=== PATIENT | female | born 1995 | race American Indian/Alaskan Native ===

== ENCOUNTER 2019-07-12 11:55 | Emergency (ER) | payer OTHER ==
[2019-07-12 13:08] VITALS: BP 108/68
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
== END 2019-07-12 13:53 | disposition home or self-care (01) ==
LOC: ED 11:55
DX: M62.838 Other muscle spasm (principal); Z79.899 Other long term (current) drug therapy; V49.59XA Passenger injured in collision with other motor vehicles in traffic accident, initial encounter; Y93.89 Activity, other specified; Y92.488 Other paved roadways as the place of occurrence of the external cause; Y99.8 Other external cause status
CPT/HCPCS: 99282

== ENCOUNTER 2021-06-10 17:47 | Emergency (ER) | payer MEDICAID ==
[2021-06-10 18:55] VITALS: BP 118/77
[2021-06-10] MEDS ORDERED: IBUPROFEN 800 MG TAB PO ONE (21:11)
[2021-06-10] MEDS ORDERED: diphenhydrAMINE 25 MG CAP PO ONE (21:11)
[2021-06-10] MEDS ORDERED: cephALEXin 500 MG CAP PO ONE (21:11)
--- NOTE | 2021-06-10 21:16 | Emergency Department Report ---
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 Patient states erythema itching mild drainage and pain. Symptoms are rated at 5/10, symptoms are relieved by nothing tried. Symptoms are exacerbated by scratching and palpation. There is no numbness, tingling, patient denies fevers or chills. Severity scale (0 -10): 6 - Related Data Previous Rx's Medication Instructions Recorded Last Taken Type Ibuprofen [Motrin 800 MG tab] 800 mg PO Q8HR PRN #30 tablet 06/10/21 Unknown Rx cephALEXin [Keflex] 500 mg PO Q8HR 7 Days #21 cap 06/10/21 Unknown Rx diphenhydrAMINE [Benadryl CAP] 25 mg PO Q8HR PRN #30 capsule 06/10/21 Unknown Rx Allergies Allergy/AdvReac Type Severity Reaction Status Date / Time No Known Allergies Allergy Verified 06/10/21 18:53 ED Review of Systems ROS: Stated complaint: SPIDER BITE Other details as noted in HPI Constitutional: denies: chills, fever Eyes: denies: eye pain, eye discharge, vision change ENT: denies: ear pain, throat pain Respiratory: denies: cough, shortness of breath, wheezing Cardiovascular: denies: chest pain, palpitations Endocrine: no symptoms reported Gastrointestinal: denies: abdominal pain, nausea, vomiting, diarrhea Genitourinary: denies: urgency, dysuria, discharge Musculoskeletal: denies: back pain, joint swelling, arthralgia Skin: other (right posterior lower leg erythema, swelling ) Neurological: denies: headache, weakness, paresthesias Psychiatric: denies: anxiety, depression ED Past Medical Hx - Past Medical History Previous Medical History?: No Additional medical history: Vaginal delivery x 1 - Surgical History Past Surgical History?: No - Social History Smoking Status: Never Smoker Substance Use Type: None - Medications Home Medications: Home Medications Medication Instructions Recorded Confirmed Last Taken Type Ibuprofen [Motrin 800 MG tab] 800 mg PO Q8HR PRN #30 tablet 06/10/21 Unknown Rx cephALEXin [Keflex] 500 mg PO Q8HR 7 Days #21 cap 06/10/21 Unknown Rx diphenhydrAMINE [Benadryl CAP] 25 mg PO Q8HR PRN #30 capsule 06/10/21 Unknown Rx ED Physical Exam - General Limitations: No Limitations General appearance: alert, in no apparent distress - Head Head exam: Present: atraumatic, normocephalic - Eye Eye exam: Present: normal appearance, EOMI Pupils: Present: normal accommodation - ENT ENT exam: Present: mucous membranes moist - Neck Neck exam: Present: normal inspection, full ROM. Absent: tenderness - Respiratory Respiratory exam: Present: normal lung sounds bilaterally. Absent: respiratory distress, wheezes, stridor - Cardiovascular Cardiovascular Exam: Present: regular rate, normal rhythm, normal heart sounds. Absent: systolic murmur, diastolic murmur, rubs, gallop - GI/Abdominal GI/Abdominal exam: Present: soft, normal bowel sounds. Absent: distended, tenderness - Rectal Rectal exam: Present: deferred - Extremities Exam Extremities exam: Present: normal inspection, full ROM - Expanded Lower Extremity Exam Right Lower Leg exam: Present: full ROM, tenderness, swelling, erythema (1x2 cm raised smooth, surrounding erythema, warm to touch, no fluctuance ). Absent: ecchymosis, crepidus, palpable cord, Gerri's sign Ankle exam: Present: full ROM. Absent: tenderness Foot/Toe exam: Present: full ROM. Absent: tenderness Neuro vascular tendon exam: Absent: pulse deficit, motor deficit Gait: Positive: observed and normal - Back Exam Back exam: Present: normal inspection, full ROM. Absent: tenderness - Neurological Exam Neurological exam: Present: alert, oriented X3, CN II-XII intact, normal gait - Psychiatric Psychiatric exam: Present: normal affect, normal mood - Skin Skin exam: Present: warm, dry, intact, normal color. Absent: rash ED Course Vital Signs 06/10/21 18:54 Temperature 98.4 F Pulse Rate 104 H Respiratory 18 Rate Blood Pressure 118/77 [Right] O2 Sat by Pulse 100 Oximetry ED Medical Decision Making - Medical Decision Making This is an infected spider bite with mild cellulitis, plan Keflex, NSAIDs as needed pain, Benadryl as needed itching. Wash area with soap and water daily as discussed. There is no open lesion no drainage at this time patient is amatory with steady gait with no acute distress. Patient will follow with primary care in 2 to 3 days. Critical care attestation.: If time is entered above; I have spent that time in minutes in the direct care of this critically ill patient, excluding procedure time. ED Disposition Clinical Impression: Infected insect bite Qualifiers: Encounter type: initial encounter Qualified Code(s): W57.XXXA - Bitten or stung by nonvenomous insect and other nonvenomous arthropods, initial encounter Lower extremity cellulitis Qualifiers: Laterality: right Qualified Code(s): L03.115 - Cellulitis of right lower limb Disposition: DC-01 TO HOME OR SELFCARE Is pt being admited?: No Does the pt Need Aspirin: No Condition: Stable Instructions: Insect Bite, Adult, [id number], Cellulitis, Adult Additional Instructions: Take medications as prescribed, wash with soap and water daily. Follow-up with primary care doctor in 2 to 3 days. Return to emergency department should symptoms worsen. Prescriptions: diphenhydrAMINE [Benadryl CAP] 25 mg PO Q8HR PRN #30 capsule PRN Reason: Itching cephALEXin [Keflex] 500 mg PO Q8HR 7 Days #21 cap Ibuprofen [Motrin 800 MG tab] 800 mg PO Q8HR PRN #30 tablet PRN Reason: pain fever Referrals: PRIMARY CAREMD [Primary Care Provider] - 3-5 Days KHANH GLASER MD [Staff Physician] - 3-5 Days Forms: Work/School Release Form(ED) Time of Disposition: 21:20
== END 2021-06-10 22:15 | disposition home or self-care (01) ==
LOC: ED 17:47
DX: L03.115 Cellulitis of right lower limb (principal); T14.8XXA Other injury of unspecified body region, initial encounter; W57.XXXA Bitten or stung by nonvenomous insect and other nonvenomous arthropods, initial encounter; Y93.89 Activity, other specified; Y92.89 Other specified places as the place of occurrence of the external cause; Y99.8 Other external cause status
CPT/HCPCS: 99282